=== PATIENT | female | born 1985 | race Caucasian/White ===

== ENCOUNTER → 2017-07-28 | Outpatient (CLI) | payer BC ==
--- NOTE | 2017-07-28 10:02 | WOMENS IMAGING REPORT ---
EXAM DESCRIPTION: TRANSVAGINAL ULTRASOUND COMPLETED DATE/TIME: 07/28/2017 8:16 am REASON FOR STUDY: GENERALIZED ABD PAIN;R10.84 R10.84 GENERALIZED ABDOMINAL PAIN COMPARISON: Pelvic ultrasound 06/21/2011 TECHNIQUE: Dynamic and static grayscale images acquired of the pelvis via transvaginal approach and recorded on PACS. Additional selected color Doppler and spectral images recorded. LIMITATIONS: None. FINDINGS: UTERUS: Contour normal. No mass. Uterus is 8 x 5 x 3.5 cm in size. ENDOMETRIAL STRIPE: No focal or generalized thickening. No masses. Endometrium 13 mm in thickness CERVIX: Multiple nabothian cysts RIGHT OVARY: No abnormal masses. Right ovary 3.5 x 2.6 x 2 cm in size. RIGHT OVARY DOPPLER: Normal arterial vascular flow without evidence for torsion. LEFT OVARY: Left ovary 4.2 x 4 x 2.9 cm in size with a 3.5 cm simple cyst. LEFT OVARY DOPPLER: Normal arterial vascular flow without evidence for torsion. FREE FLUID: None noted. OTHER: No other significant finding. IMPRESSION: Left ovary 3.5 cm simple cyst. No free pelvic fluid. No ultrasound evidence for left o varian torsion. Thickened endometrial stripe likely due to phase of menses Multiple nabothian cysts. TECHNICAL DOCUMENTATION: JOB ID: [id number] [employer]- All Rights Reserved
== END ==
LOC: WI 07:01
PROVIDERS: ATTEND Physician Assistant
DX: R10.84 Generalized abdominal pain (principal); N83.292 Other ovarian cyst, left side; N88.8 Other specified noninflammatory disorders of cervix uteri
CPT/HCPCS: 76830